=== PATIENT | female | born 1970 | race Caucasian/White ===

== ENCOUNTER 2018-07-26 20:46 | Emergency (ER) | payer OTHER ==
[~2018-07-26] VITALS: Ht 167.6 cm; Wt 70.8 kg
--- NOTE | 2018-07-26 21:14 | NUR ---
[facility], REPORT INCREASED AGITATION W/ VERBAL OUTBURSTS AT FACILITY, NORMALLY AOX0 & NONVERBAL. PT NONVERBAL AT THIS TIME, CALM, COOPERATIVE W/ RESP EVEN & UNLABORED, NAD NOTED. PT ON CONTINUOUS MONITORING W/ BED LOW TO GROUND, SIDERAILS UP FOR SAFETY. PENDING FURTHER EVAL FR [facility].
--- NOTE | 2018-07-26 22:13 | NUR ---
SURVEYOR ROD HELPER AT BEDSIDE FOR BLOOD DRAW.
[2018-07-26 22:30] LABS: BASOPHILS % (AUTO) 0.6 % (0.0-2.0); EOSINOPHILS % (AUTO) 2.9 % (0.0-6.0); HEMATOCRIT 42 % (33-45); HEMOGLOBIN 13.3 g/dL (11.5-14.8); LYMPHOCYTES # (AUTO) 2.9 /CMM (0.8-4.8); LYMPHOCYTES % (AUTO) 38.1 % (20.0-44.0); MEAN CORPUSCULAR HGB CONC 32 g/dl (31.0-36.0); MEAN CORPUSCULAR VOLUME 92 fL (82-100); MONOCYTES # (AUTO) 0.6 /CMM (0.1-1.30); MONOCYTES % (AUTO) 8.1 % (2.0-12.0); NEUTROPHILS # (AUTO) 3.9 /CMM (1.8-8.9); NEUTROPHILS % (AUTO) 50.3 % (43.0-81.0); PLATELET COUNT (AUTO) 236 /CMM (150-450); RDW COEFFICIENT OF VARIATION 13.9 (11.5-15.0); RED BLOOD CELL COUNT(AUTO) 4.52 MIL/uL (4.0-5.2); WHITE BLOOD COUNT (AUTO) 7.7 K/uL (4.3-11.0)
[2018-07-26 22:37] LABS: CALCIUM, SERUM 9.2 mg/dL (8.5-10.1); CARBON DIOXIDE 27 mmol/L (21-32); CHLORIDE 104 mmol/L (98-107); GLUCOSE 170 mg/dL (74-106); POTASSIUM 3.7 mmol/L (3.5-5.1); SODIUM SERUM 140 mmol/L (136-145); UREA NITROGEN, BLOOD 16 mg/dL (7-18)
[2018-07-26 22:41] LABS: ALANINE AMINOTRANSFERASE 49 U/L (12-78); ALBUMIN 3.4 g/dL (3.4-5.0); ALKALINE PHOSPHATASE 129 U/L (46-116); ASPARTATE AMINOTRANSFERASE 21 U/L (15-37); BILIRUBIN,DIRECT 0.1 mg/dL (0.0-0.2); BILIRUBIN,TOTAL 0.6 mg/dL (0.2-1.0); TOTAL PROTEIN, SERUM 6.8 g/dL (6.4-8.2)
[2018-07-26 22:42] LABS: ACETAMINOPHEN < 0 ug/ml (10-30); ALCOHOL, BLOOD < 0 mg/dL (0-0); SALICYLATE 0.6 mg/dL (2.8-20.0)
--- NOTE | 2018-07-26 22:45 | NUR ---
Urine obtained & sent to lab.
--- NOTE | 2018-07-26 23:35 | NUR ---
pt sitting up in bed w/ resp & even & unlabored, calm, somnolent w/ nad noted. Will continue to monitor.
[2018-07-27 00:11] LABS: APPEARANCE,URINE CLOUDY (CLEAR); COLOR,URINE YELLOW (YELLOW)
[2018-07-27 00:12] LABS: BILIRUBIN,URINE NEGATIVE (NEGATIVE); BLOOD, URINE 2+ Ery/uL (NEGATIVE); KETONES,URINE NEGATIVE (NEGATIVE); LEUKOCYTE ESTERASE ,URINE 3+ (NEGATIVE); NITRITE, URINE NEGATIVE (NEGATIVE); PROTEIN,URINE 1+ mg/dl (NEGATIVE); UGLUCOSE NEGATIVE (NEGATIVE); UROBILINOGEN,URINE 0.2 EU/dL (0.2)
--- NOTE | 2018-07-27 00:36 | NUR ---
Art, [employer]PER[employer] at bedside for psych eval.
[2018-07-27 00:52] LABS: WBC,URINE TOO NUMEROUS TO COUN /HPF (0-3)
[2018-07-27 00:53] LABS: BACTERIA,URINE Few /HPF (None Seen); SQUAMOUS EPITHELIAL CELL,UR Few /HPF (None Seen)
--- NOTE | 2018-07-27 01:03 | NUR ---
TONI GUTIÉRREZ TRANSPORT TO [facility] 2:35AM TRIP [id number].
--- NOTE | 2018-07-27 01:09 | NUR ---
SPOKE TO MARÍA BROTHERS FROM [facility], AWARE PT TO BE TRANSFERRED BACK TO FACILITY.
--- NOTE | 2018-07-27 01:23 | NUR ---
pt resting in bed w/ resp even & unlabored, nad noted. bed low to ground w/ siderails up. Awaiting ambulance tfr for discharge back to facility.
--- NOTE | 2018-07-27 02:39 | NUR ---
Report given to YESICA Alejandra w/ ambulnmaggie [facility], resp even & unlabored, nad noted. Written and verbal after care instructions given.
[2018-07-27 02:41] VITALS: BP 141/76
== END 2018-07-27 02:43 | disposition home or self-care (01) ==
LOC: ER 20:47
DX: R45.6 Violent behavior (principal); Z86.73 Personal history of transient ischemic attack (TIA), and cerebral infarction without residual deficits; G40.909 Epilepsy, unspecified, not intractable, without status epilepticus; I10 Essential (primary) hypertension; F25.0 Schizoaffective disorder, bipolar type; E11.41 Type 2 diabetes mellitus with diabetic mononeuropathy; F03.90 Unspecified dementia, unspecified severity, without behavioral disturbance, psychotic disturbance, mood disturbance, and anxiety; G47.00 Insomnia, unspecified
CPT/HCPCS: 36415; 80048; 80076; 80305; 80329; 81001; 85025; 99284; A4606; G0480 ×2; Z7610; 81000-TC; 87086-TC; 87186-TC